=== PATIENT | female | born 1995 | race Caucasian/White ===

== ENCOUNTER 2019-03-24 17:34 | Emergency (ER) | payer SELFPAY ==
[~2019-03-24] VITALS: Ht 157.5 cm; Wt 68.9 kg
[2019-03-24 17:45] VITALS: Ht 157.5 cm; Wt 68.9 kg
[2019-03-24 18:49] LABS: BASOPHIL % 0.5 % (0-2); PLATELET COUNT 303 x10^3mcL (130-400); RED CELL DISTRIBUTION WIDTH 12.8 % (11.5-14.5)
[2019-03-24 18:57] LABS: CALCIUM 8.8 mg/dL (8.5-10.1); CARBON DIOXIDE 27.1 mmol/L (21-32); CHLORIDE SERUM 101 mmol/L (98-107); CREATININE SERUM 0.6 mg/dL (0.6-1.0); GFR1 > 60 mL/min; GLUCOSE SERUM 105 mg/dL (74-106); POTASSIUM SERUM 3.9 mmol/L (3.5-5.1); SODIUM SERUM 139 mmol/L (136-145)
[2019-03-24 19:02] LABS: ALBUMIN 4.1 g/dL (3.4-5.0); ALKALINE PHOSPHATASE 78 U/L (46-116); ALT/SGPT 36 U/L (14-59); AST/SGOT 22 U/L (15-37); BILIRUBIN TOTAL 0.31 mg/dL (0.20-1.00); TOTAL PROTEIN, SERUM 8.1 g/dL (6.4-8.2)
[2019-03-24 20:33] VITALS: BP 134/81
== END 2019-03-24 20:33 | disposition home or self-care (01) ==
LOC: ED 17:34
PROVIDERS: Emergency Medicine
DX: R42 Dizziness and giddiness (principal); R51 Headache; R11.0 Nausea; H92.01 Otalgia, right ear; H57.89 Other specified disorders of eye and adnexa
CPT/HCPCS: 36415

== ENCOUNTER 2020-02-11 15:52 | Emergency (ER) | payer SELFPAY ==
[~2020-02-11] VITALS: Ht 157.5 cm; Wt 66.8 kg
[2020-02-11 16:05] VITALS: Ht 157.5 cm; Wt 66.8 kg
[2020-02-11 18:43] VITALS: BP 146/92
== END 2020-02-11 18:43 | disposition home or self-care (01) ==
LOC: ED 15:52
DX: F41.9 Anxiety disorder, unspecified (principal); R06.02 Shortness of breath; I45.10 Unspecified right bundle-branch block
CPT/HCPCS: Q0092